=== PATIENT | female | born 1955 | race Caucasian/White ===

== ENCOUNTER 2018-04-27 13:29 | Inpatient (IN) | payer OTHER, SELFPAY ==
[2018-04-27] VITALS (19 sets, daily range): BP systolic 132–161; BP diastolic 54–93; PULSE 62–92; RESP 10–20; TEMP 36.2–36.8; O2SAT 92–100; BMI 36.9
--- NOTE | 2018-04-27 | PATH_ITS ---
[facility] Accession Number: [id number] . 01 Material submitted: . ANAL CANAL LESION . 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 Squamous cell carcinoma in situ also present. Lymphovascular invasion present. MRV/04/30/2018 . 01 Comment: Results were called to Dr. Evelyne Loyola on 04/30/2018 at 11:20 am. . 01 Electronically signed: . Marvin Campos MD, Pathologist NPI- [id number] . 01 Gross description: . Received in formalin, labeled anal canal lesion, is a piece of teague-sosa rubbery tissue (2.8 x 1.8 x 1.1 cm). The apparent resection margin is inked black. Serially sectioned and entirely submitted in cassettes A1-A3. ([id number]) /[facility] . 01 Pathologist provided ICD-10: C21.1 . 01 CPT . 862433 Performed at: [address] [facility], [place], [place] [id number] MD Hipolito Sierra MD Phone: [phone]
--- NOTE | 2018-04-27 13:51 | P.HP_ITS ---
History of Present Illness Date Patient Seen: 04/27/18 Time Patient Seen: 11:44 Chief complaint: rectal bleeding Narrative: Red rectal bleeding Patient called the office today describing red rectal bleeding. A and running down her leg. She was seen in the office this morning. The patient has had red rectal bleeding for several days. But generally not extensive. Today was obviously more than her normal bleeding. 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 She has a small fistula remaining. When she has a fair amount of rectal bleeding she gets a little bit of bleeding through the fistula and upper vagina No fever no chills no melena. Minimal abdominal pain. She thinks someone told her in the past she had irritable bowel syndrome. She has no history of bleeding disorder. She had a colonoscopy within the last 2 years in [place] that was unremarkable except for some polyps She is on no blood thinners Daily medications include metformin and losartan Patient History Medical History Cataract (Chronic) Diabetes mellitus (Chronic 2002) Rosacea (Chronic) Chicken pox (Resolved) Endometriosis (Resolved) Fibroids (Resolved) Fractures (Resolved) Frequent UTI (Resolved) History of heavy periods (Resolved) Infertility (Resolved) Mumps (Resolved) Ovarian cyst (Resolved) Rubella (Resolved) Surgical History Anesthesia (Resolved) History of ankle surgery (Resolved 1994) History of hand surgery (Resolved 2014) History of rectal surgery (Resolved 1984) History of right knee surgery (Resolved 2004) Status post hysterectomy (Resolved 1996) Status post laparoscopy (Resolved 1981) Family & Social History Family History: Reviewed 04/27/18 by Mirza Vann MD Tobacco & Substance use: Smoking Status Former smoker Meds Home Medications Medication Instructions Recorded Confirmed Type sulfacetamide sodium [Ovace] 180 ml TP BID #0 07/04/16 04/27/18 History minocycline 25 mg PO BID #90 cap 09/04/16 04/27/18 Rx losartan 50 mg tablet 50 mg PO QDAY #90 tab 02/26/18 04/27/18 Rx metformin 1,000 mg tablet 1,000 mg PO BID #36 tab 04/17/18 04/27/18 Rx hydrocortisone 2.5 % topical cream 1 applictn [place] BID 14 Days #30 gram 04/22/18 04/27/18 Rx with perineal applicator Allergies Allergy/AdvReac Type Severity Reaction Status Date / Time Penicillins [PENICILLINS] Allergy Unknown Unverified 04/22/18 15:12 Sulfa (Sulfonamide Allergy Unknown Unverified 04/22/18 15:12 Antibiotics) [SULFA (SULFONAMIDE ANTIBIOTICS)] Review of Systems Review of Systems All systems reviewed & are unremarkable except as noted in HPI and below Exam Narrative Exam Narrative: GENERAL: SKIN: No specific lesions or rash. HEENT: Sclera nonicteric, and EOMI. TMs and canals normal. Nasal mucosa normal and septum midline. Oropharnyx without lesions. NECK: Midline trachea, thyroid nontender and not enlarged. No lymphadenopathy. Carotids without bruits. BACK: No obvious deformity and nontender BREASTS: Not examined.] CHEST: Clear and symmetric breath sounds. CV: RRR no audible murmur. ABDOMEN: Soft nontender without viceromegaly or bruits. EXTREMITIES: No cyanosis clubbing or edema. MUSCULOSKELETAL: No gross joint changes. NEURO: Cranial nerves grossly intact. Sensory motor normal. DTRs symmetric knees and ankles, 2+ bilaterally. Abdominal exam is benign. External anal exam shows no lesions no hemorrhoids. There was some blood on the perineum. Anoscopy is performed initially patient felt some discomfort as the scope was passed the sphincter. With the trocar was removed immediately red blood gushed out and continue to flow. Attempt to see father upstream with anoscope was unsuccessful but there was an impression that may well have been a mass there. Objective Labs Labs: No recent lab labs have been ordered and are pending Assessment & Plan (1) Rectal bleeding: Current visit: Yes Status: Acute Plan: Assessment/Plan Narrative: 1. The fairly rapid red rectal bleeding. Patient has no history of diverticulosis. Was said to have internal hemorrhoids but clearly this is bleeding more than expected. Unclear to me whether not to something more upstream needs colonoscopy. This was discussed with Dr. Loyola surgeon on-call who recommended she be admitted for observation and preparation for colonoscopy tomorrow 2. Hypertension on medication presumably stable 3. Diabetes on medication presumably stable labs been ordered
[2018-04-27 14:30] LABS: Add Manual Diff / Slide Review NO; Eosinophils Percent Auto 1.3 % (2-4); Hematocrit 33.6 % (36-46); Hemoglobin 11.5 g/dL (12.0-16.0); Lymphocytes Percent Auto 21.7 % (25-40); Mean Corpuscular HGB Conc 34.1 % (30-36); Mean Corpuscular Hemoglobin 31.4 PG (26-34); Mean Corpuscular Volume 91.9 fL (80-100); Neutrophils Absolute Auto 3000 /uL (3000-5900); Platelet Count 229 X10^3/uL (150-400); Red Blood Cell Count 3.65 X10^6/uL (4.0-5.2); Red Cell Distribution Width 13.1 % (11.6-14.8); White Blood Cell Count 4.5 X10^3/uL (4.5-11.0)
[2018-04-27] MEDS: DEXTROSE 5%-0.9% NS 1,000 ML 100 ML IV (14:36)
[2018-04-27 14:37] LABS: INR 1.1 (0.9-1.3); Prothrombin Time 11.6 SECONDS (10.1-12.7)
[2018-04-27 14:40] LABS: PTT Partial Thromboplastin Tim 27 SECONDS (26.4-36.2)
[2018-04-27 14:42] LABS: Alanine Aminotransferase 33 IU/L (9-52); Albumin Globulin Ratio 1.7 (1.0-2.8); Alkaline Phosphatase 62 U/L (38-126); Aspartate Aminotransferase 26 IU/L (14-36); BUN Creatinine Ratio 15.7 (6-22); Bilirubin Total 0.3 mg/dL (0.2-1.3); Blood Urea Nitrogen 11 mg/dL (7-17); Calcium 9.1 mg/dL (8.4-10.2); Carbon Dioxide 24 mmol/L (22-32); Chloride 104 mmol/L (98-107); Estimated Glomerular Filt Rate > 60.0 mL/min (>60); Globulin 2.4 g/dL (1.7-4.1); Glucose 109 mg/dL (80-110); HEMOLYSIS < 15 (0-50); Magnesium 1.5 mg/dL (1.6-2.3); Potassium 4.5 mmol/L (3.4-5.1); Sodium 141 mmol/L (137-145); Total Protein 6.4 g/dL (6.3-8.2)
--- NOTE | 2018-04-27 15:37 | PM.CN ---
History of Present Illness Date Patient Seen: 04/27/18 Time Patient Seen: 15:38 Chief complaint: rectal bleeding Reason for consult: Rectal/anal bleeding Requesting provider: Mirza Vann Narrative: Wonderful 62 year old lady to presented to her PCP office today report bright red blood per rectum. She reports she has been sort of dealing with this issue for the last several months. She reports she started working at a standing job at [employer] about a month ago. Had that is really when her problems started to ramp up. She says that she started feeling a sense of constant or near constant anal pressure within about 2 hr of getting to work. She says that over the last week or so she has been seeing gradually a little more blood. She and Dr. Davenport discussed this issue a couple of months ago and decided it was probably a hemorrhoid. She said she has had itching and irritation in the perianal area for a long time as well. 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 She denies any unexplained weight loss. She denies any bright red blood per rectum. She reports that her last colonoscopy was at [facility] and she does recall polyps but nothing particularly large or concerning. She denies any hot flashes, recent sick contacts or any other concerning constitutional symptoms [facility] Medical History Cataract (Chronic) Diabetes mellitus (Chronic 2002) Rosacea (Chronic) Chicken pox (Resolved) Endometriosis (Resolved) Fibroids (Resolved) Fractures (Resolved) Frequent UTI (Resolved) History of heavy periods (Resolved) Infertility (Resolved) Mumps (Resolved) Ovarian cyst (Resolved) Rubella (Resolved) Surgical History Anesthesia (Resolved) History of ankle surgery (Resolved 1994) History of hand surgery (Resolved 2014) History of rectal surgery (Resolved 1984) History of right knee surgery (Resolved 2004) Status post hysterectomy (Resolved 1996) Status post laparoscopy (Resolved 1981) Family History Brother Age: 61 Polyp of colon, unspecified part of colon, unspecified type Grandfather Age: 61 Cancer Mother Malignant neoplasm of female breast, unspecified laterality, unspecified site of breast Aneurysm Brother No problems noted. Father Brain cancer Grandmother Stroke Grandfather Diabetes mellitus Grandmother Leukemia Family/Other Malignant neoplasm of female breast, unspecified laterality, unspecified site of breast Social History household members: none Smoking Status: Former smoker Meds Home Medications Medication Instructions Recorded Confirmed Type sulfacetamide sodium [Ovace] 180 ml TP BID #0 07/04/16 04/27/18 History minocycline 25 mg PO BID #90 cap 09/04/16 04/27/18 Rx losartan 50 mg tablet 50 mg PO QDAY #90 tab 02/26/18 04/27/18 Rx metformin 1,000 mg tablet 1,000 mg PO BID #36 tab 04/17/18 04/27/18 Rx hydrocortisone 2.5 % topical cream 1 applictn [place] BID 14 Days #30 gram 04/22/18 04/27/18 Rx with perineal applicator Allergies Allergy/AdvReac Type Severity Reaction Status Date / Time Penicillins [PENICILLINS] Allergy Severe Rash Verified 04/27/18 13:57 Sulfa (Sulfonamide Allergy Severe Rash Verified 04/27/18 13:56 Antibiotics) [SULFA (SULFONAMIDE ANTIBIOTICS)] Review of Systems Review of Systems Dariela specifically denies any abdominal pain, nausea, or vomiting. She has not noted any change in her bowel habits. She denies any dark or tarry stools. The blood that she sees is purely bright red and clotted. The remainder of the review of systems is completely negative Exam Vital Signs (past 8 hours): - 04/27/18 13:54 Temperature 98.2 F Pulse Rate 83 Respiratory Rate 16 Blood Pressure 161/93 H Pulse Oximetry 98 Narrative Exam Narrative: Pleasant middle-aged lady in no obvious distress HEENT: Normocephalic and atraumatic, pupils equal round reactive to light accommodation with anicteric sclera. Lungs: Clear to auscultation bilaterally Heart: Regular rate and rhythm without murmur rub or gallop Abdomen: Soft, nontender to palpation, active bowel sounds. No rebound or guarding. No heel tap a Rovsing sign. No abdominal masses. Rectal: Internal rectal examination is deferred. There is a circular blood stain on the Chux pad but no active bleeding from the anus currently. Extremities: Warm and well perfused without obvious edema. Objective Labs Result Diagrams: 04/27/18 14:08 04/27/18 14:08 Labs: Laboratory Results - last 24 hr 04/27/18 04/27/18 04/27/18 14:08 14:08 14:08 WBC 4.5 RBC 3.65 L Hgb 11.5 L Hct 33.6 L MCV 91.9 MCH 31.4 MCHC 34.1 RDW 13.1 Plt Count 229 Neut % (Auto) 68.0 Lymph % (Auto) 21.7 L [place] % (Auto) 8.0 Eos % (Auto) 1.3 L Baso % (Auto) 1.0 Neut # (Auto) 3000 PT 11.6 INR 1.1 APTT 27 Sodium 141 Potassium 4.5 Chloride 104 Carbon Dioxide 24 BUN 11 Creatinine 0.70 Estimated GFR > 60.0 BUN/Creatinine Ratio 15.7 Glucose 109 Calcium 9.1 Magnesium 1.5 L Total Bilirubin 0.3 AST 26 ALT 33 Alkaline Phosphatase 62 Total Protein 6.4 Albumin 4.0 Globulin 2.4 Albumin/Globulin Ratio 1.7 Assessment & Plan Plan: Assessment/Plan Narrative: Bright red anal bleeding in the setting of a pleasant 62-year-old lady whose had a recent colonoscopy. This could be simply a hemorrhoid or thrombosed hemorrhoid or laceration or any other of numerous possible benign anal lesions. It could also represent a malignancy but I think this is much less likely. I have recommended an examination under anesthesia in the operating room tonight. Hopefully we will be able to stop the hemorrhage and control any further symptoms down the road. Additionally, I will request reports of the most recent colonoscopy from [facility]. I have discussed the risks and benefits of the procedure with . Wilmer andjoe has expressed desire to complete it today.
--- NOTE | 2018-04-27 15:42 | P.CONS_ITS ---
History of Present Illness Date Patient Seen: 04/27/18 Time Patient Seen: 15:38 Chief complaint: rectal bleeding Reason for consult: Rectal/anal bleeding Requesting provider: Mirza Vann Narrative: Wonderful 62 year old lady to presented to her PCP office today report bright red blood per rectum. She reports she has been sort of dealing with this issue for the last several months. She reports she started working at a standing job at [employer] about a month ago. Had that is really when her problems started to ramp up. She says that she started feeling a sense of constant or near constant anal pressure within about 2 hr of getting to work. She says that over the last week or so she has been seeing gradually a little more blood. She and Dr. Davenport discussed this issue a couple of months ago and decided it was probably a hemorrhoid. She said she has had itching and irritation in the perianal area for a long time as well. 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 She denies any unexplained weight loss. She denies any bright red blood per rectum. She reports that her last colonoscopy was at [facility] and she does recall polyps but nothing particularly large or concerning. She denies any hot flashes, recent sick contacts or any other concerning constitutional symptoms [facility] Medical History Cataract (Chronic) Diabetes mellitus (Chronic 2002) Rosacea (Chronic) Chicken pox (Resolved) Endometriosis (Resolved) Fibroids (Resolved) Fractures (Resolved) Frequent UTI (Resolved) History of heavy periods (Resolved) Infertility (Resolved) Mumps (Resolved) Ovarian cyst (Resolved) Rubella (Resolved) Surgical History Anesthesia (Resolved) History of ankle surgery (Resolved 1994) History of hand surgery (Resolved 2014) History of rectal surgery (Resolved 1984) History of right knee surgery (Resolved 2004) Status post hysterectomy (Resolved 1996) Status post laparoscopy (Resolved 1981) Family History Brother Age: 61 Polyp of colon, unspecified part of colon, unspecified type Grandfather Age: 61 Cancer Mother Malignant neoplasm of female breast, unspecified laterality, unspecified site of breast Aneurysm Brother No problems noted. Father Brain cancer Grandmother Stroke Grandfather Diabetes mellitus Grandmother Leukemia Family/Other Malignant neoplasm of female breast, unspecified laterality, unspecified site of breast Social History household members: none Smoking Status: Former smoker Meds Home Medications Medication Instructions Recorded Confirmed Type sulfacetamide sodium [Ovace] 180 ml TP BID #0 07/04/16 04/27/18 History minocycline 25 mg PO BID #90 cap 09/04/16 04/27/18 Rx losartan 50 mg tablet 50 mg PO QDAY #90 tab 02/26/18 04/27/18 Rx metformin 1,000 mg tablet 1,000 mg PO BID #36 tab 04/17/18 04/27/18 Rx hydrocortisone 2.5 % topical cream [address] BID 14 Days #30 gram 04/22/18 04/27/18 Rx with perineal applicator Allergies Allergy/AdvReac Type Severity Reaction Status Date / Time Penicillins [PENICILLINS] Allergy Severe Rash Verified 04/27/18 13:57 Sulfa (Sulfonamide Allergy Severe Rash Verified 04/27/18 13:56 Antibiotics) [SULFA (SULFONAMIDE ANTIBIOTICS)] Review of Systems Review of Systems Dariela specifically denies any abdominal pain, nausea, or vomiting. She has not noted any change in her bowel habits. She denies any dark or tarry stools. The blood that she sees is purely bright red and clotted. The remainder of the review of systems is completely negative Exam Vital Signs (past 8 hours): - 04/27/18 13:54 Temperature 98.2 F Pulse Rate 83 Respiratory Rate 16 Blood Pressure 161/93 H Pulse Oximetry 98 Narrative Exam Narrative: Pleasant middle-aged lady in no obvious distress HEENT: Normocephalic and atraumatic, pupils equal round reactive to light accommodation with anicteric sclera. Lungs: Clear to auscultation bilaterally Heart: Regular rate and rhythm without murmur rub or gallop Abdomen: Soft, nontender to palpation, active bowel sounds. No rebound or guarding. No heel tap a Rovsing sign. No abdominal masses. Rectal: Internal rectal examination is deferred. There is a circular blood stain on the Chux pad but no active bleeding from the anus currently. Extremities: Warm and well perfused without obvious edema. Objective Labs Result Diagrams: 04/27/18 14:08 04/27/18 14:08 Labs: Laboratory Results - last 24 hr 04/27/18 04/27/18 04/27/18 14:08 14:08 14:08 WBC 4.5 RBC 3.65 L Hgb 11.5 L Hct 33.6 L MCV 91.9 MCH 31.4 MCHC 34.1 RDW 13.1 Plt Count 229 Neut % (Auto) 68.0 Lymph % (Auto) 21.7 L [place] % (Auto) 8.0 Eos % (Auto) 1.3 L Baso % (Auto) 1.0 Neut # (Auto) 3000 PT 11.6 INR 1.1 APTT 27 Sodium 141 Potassium 4.5 Chloride 104 Carbon Dioxide 24 BUN 11 Creatinine 0.70 Estimated GFR > 60.0 BUN/Creatinine Ratio 15.7 Glucose 109 Calcium 9.1 Magnesium 1.5 L Total Bilirubin 0.3 AST 26 ALT 33 Alkaline Phosphatase 62 Total Protein 6.4 Albumin 4.0 Globulin 2.4 Albumin/Globulin Ratio 1.7 Assessment & Plan Plan: Assessment/Plan Narrative: Bright red anal bleeding in the setting of a pleasant 62-year-old lady whose had a recent colonoscopy. This could be simply a hemorrhoid or thrombosed hemorrhoid or laceration or any other of numerous possible benign anal lesions. It could also represent a malignancy but I think this is much less likely. I have recommended an examination under anesthesia in the operating room tonight. Hopefully we will be able to stop the hemorrhage and control any further symptoms down the road. Additionally, I will request reports of the most recent colonoscopy from [facility]. I have discussed the risks and benefits of the procedure with . iWlmer andjoe has expressed desire to complete it today.
--- NOTE | 2018-04-27 15:54 | PC.NURSE ---
Admit: Late entry Arrived to room 204 as direct admit @1320. A&O X3, steady on feet. Informed of NPO status, oral swabs provided. IVF per order, site in L AC WNL. Off floor for endoscopy at approx 1500.
[2018-04-27] MEDS: LACTATED RINGERS 1,000 ML 42 ML IV (16:08)
[2018-04-27] MEDS: CEFAZOLIN 2 GM/100 ML FROZ.PIGGY IV (16:28)
--- NOTE | 2018-04-27 16:39 | SUR.OPER ---
Lithotomy on padded OR bed, head on pillow, arms secured on padded arm boards at <90 degrees abduction. Legs secured in padded yellow fins stirrups.
--- NOTE | 2018-04-27 17:09 | P.OP_ITS ---
Operative Date/Time/Diagnoses Date of procedure: 04/27/18 Time of procedure: 17:02 Pre-op diagnosis: Anal hemorrhage Post-op diagnosis: same Procedure & Clinicians Procedure: Examination under anesthesia with biopsy of anal lesion Same procedure as scheduled: Yes Indications: Bright red anal hemorrhage Surgeon: Evelyne Loyola Anesthesia Type: General ([facility]) Operative Notes Findings: 1. Very large anal rectal mass-approximately 10 x 5 cm. Multilobulated and very friable. 2. Active hemorrhage from the open surface of the lesion. 3. The lesion extends into the anal canal and onto the anoderm. 4. One 2 cm segment of the mass was noted to be avulsed and was retained for pathology Closure Type: not applicable Specimen(s): other (Portion of anal mass) Estimated Blood Loss (mL): 10 Procedure in detail: After obtaining informed consent, the patient brought to the operating room and placed in the supine position on the operating table. Following successful induction of general endotracheal anesthesia, appropriate padding of all bony prominences, and placement of appropriate monitors, the perianal regions prepped and draped in standard surgical fashion. A time-out was held per SCOAP protocol. A self-retaining anal retractor was lubricated and placed into the anal canal. We immediately encountered a volume of clotted blood and a mass extending from the anal derm into the anal canal and for a distance of approximately 10 cm superiorly. A portion of the mass was noted to be floating by a 4 or 5 mm diameter stalk of tissue. This piece was retained for pathology. The mass was palpably fixed posteriorly and occupied approximately 25-30% of the circumference of the anal canal. Once the biopsy had been obtained, multiple efforts were undertaken to try to stop the bleeding including direct pressure and packing with Gel-Foam and Surgicel. We finally achieved a degree of hemostasis using 2 pieces of Surgicel covering the raw surface of the lesion and 2 portions of Gel-Foam wrapped to provide a type of pressure dressing. All sponge, needle, and instrument counts were correct at the conclusion the case. At the time the surgery was concluded, there was no active hemorrhage from the anal canal. The patient was allowed awaken from anesthesia and taken to the postanesthesia care unit in good condition. Complications: none Condition: stable Disposition: PACU Plan for aftercare: 1. I have spoken to Dr. Vann regarding all of these findings 2. I have discussed all the above with the patient 3. Return to [facility] for supportive care and further disposition.
[2018-04-27] MEDS: fentaNYL 100 MCG/2 ML INJ 50 MCG IV ×2 (17:16→17:26)
[2018-04-27] MEDS: HYDROMORPHONE 2 MG INJ 0.5 MG IV ×2 (17:41→17:48)
[2018-04-27 19:27] LABS: Hematocrit 31.6 % (36-46); Hemoglobin 10.8 g/dL (12.0-16.0)
[2018-04-27] MEDS: HYDROMORPHONE 0.5 MG INJ IV (20:34)
--- NOTE | 2018-04-27 22:02 | PC.NURSE ---
Addendum entered by Yamilet Pablo R.N. 04/28/18 00:49: received call from coordinator that pt needed to transfer to [facility] due to anal mass with bleeding. Pt made NPO, IVF started. Coordinator received order for pain meds. Medicated once with IV Dilaudid. No blood leaking from anal packing. Pt transferred to [facility] at 22:00. Report called to unit 11E. Original Note: hector note Saw Dr. Loyola at 15:10, pt not to receive Go-Lytely Pt to go to endoscopy at 17:00. Pt up to bathroom to void, no blood seen. Pt went to endoscopy early. Received call from
== END 2018-04-27 22:00 | disposition short-term general hospital (02) | DRG 348 ==
PROVIDERS: Surgery; Admitting Provider Family Medicine; Family Provider Family Medicine; PCP Family Medicine; Visit Provider Family Medicine
PROC: 0W3P7ZZ Control Bleeding in Gastrointestinal Tract, Via Natural or Artificial Opening (ICD-10-PCS; CPT 45990; principal; 2018-04-27 17:00)
DX: C21.8 Malignant neoplasm of overlapping sites of rectum, anus and anal canal (principal); K62.5 Hemorrhage of anus and rectum; I10 Essential (primary) hypertension; E11.9 Type 2 diabetes mellitus without complications; Z79.84 Long term (current) use of oral hypoglycemic drugs; E66.9 Obesity, unspecified; Z68.36 Body mass index [BMI] 36.0-36.9, adult
CPT/HCPCS: 36592; 46922; 80053; 82962; 83735; 85014; 85018; 85025; 85610; 85730; 99221; J0690; J1170; J2405; J2704; J3010

== ENCOUNTER → 2018-07-27 08:55 | Outpatient (CLI) | payer OTHER, SELFPAY ==
[2018-04-27 13:34] VITALS: BMI 36.9
[2018-07-27 10:14] LABS: Hemoglobin A1C% w Est Avg Glu 5.3 % (4.0-6.0)
[2018-07-27 10:31] LABS: Cholesterol 188 mg/dL (140-199); HDL Cholesterol 45 mg/dL (40-60); LDL Cholesterol Calculated 120 mg/dL (<100); Triglycerides 117 mg/dL (35-150)
== END ==
PROVIDERS: PCP Family Medicine; Visit Provider Family Medicine
DX: E11.9 Type 2 diabetes mellitus without complications (principal)
CPT/HCPCS: 36415; 80061; 83036

== ENCOUNTER → 2018-11-10 12:13 | Outpatient (CLI) | payer OTHER, SELFPAY ==
[2018-04-27 13:34] VITALS: BMI 36.9
[2018-11-10 13:21] LABS: Add Manual Diff / Slide Review NO; Basophils Absolute Auto 0 /uL (0-100); Basophils Percent Auto 0.8 % (0-2); Eosinophils Absolute Auto 100 /uL (0-450); Eosinophils Percent Auto 1.9 % (2-4); Hematocrit 33.8 % (36-46); Hemoglobin 11.7 g/dL (12.0-16.0); Lymphocytes Absolute Auto 600 /uL (1100-4500); Lymphocytes Percent Auto 16.1 % (25-40); Mean Corpuscular HGB Conc 34.7 % (30-36); Mean Corpuscular Hemoglobin 30.9 PG (26-34); Mean Corpuscular Volume 88.9 fL (80-100); Monocytes Absolute Auto 300 /uL (0-900); Monocytes Percent Auto 6.9 % (3-14); Neutrophils Absolute Auto 2900 /uL (1500-7000); Neutrophils Percent Auto 74.3 % (50-75); Platelet Count 198 X10^3/uL (150-400); Red Cell Distribution Width 13.9 % (11.6-14.8); White Blood Cell Count 3.9 X10^3/uL (4.5-11.0)
[2018-11-10 14:02] LABS: Alanine Aminotransferase 16 IU/L (9-52); Albumin 4.3 g/dL (3.5-5.0); Albumin Globulin Ratio 1.5 (1.0-2.8); Alkaline Phosphatase 71 U/L (38-126); Aspartate Aminotransferase 19 IU/L (14-36); Bilirubin Total 0.5 mg/dL (0.2-1.3); Blood Urea Nitrogen 14 mg/dL (7-17); Calcium 9.9 mg/dL (8.4-10.2); Carbon Dioxide 27 mmol/L (22-32); Chloride 98 mmol/L (98-107); Cholesterol 181 mg/dL (140-199); Estimated Glomerular Filt Rate > 60.0 mL/min (>60); Globulin 2.8 g/dL (1.7-4.1); Glucose 107 mg/dL (80-110); HDL Cholesterol 67 mg/dL (40-60); HEMOLYSIS < 15 (0-50); LDL Cholesterol Calculated 93 mg/dL (<100); Potassium 4.3 mmol/L (3.4-5.1); Sodium 136 mmol/L (137-145); Total Protein 7.1 g/dL (6.3-8.2); Triglycerides 104 mg/dL (35-150)
[2018-11-10 15:08] LABS: TSH w/ Reflex to FT4 0.06 uIU/mL (0.47-4.68)
[2018-11-10 15:36] LABS: Free T3, Triiodothyronine Free 3.71 pg/mL (2.77-5.27); Free T4, Direct Thyroxine 1.15 ng/dL (0.78-2.19)
== END ==
PROVIDERS: Family Provider Family Medicine; PCP Family Medicine; Visit Provider Family Medicine
DX: E11.9 Type 2 diabetes mellitus without complications (principal); I10 Essential (primary) hypertension; E04.1 Nontoxic single thyroid nodule
CPT/HCPCS: 36415; 80053; 80061; 83036; 84439; 84443; 84481; 85025

== ENCOUNTER → 2019-01-13 14:55 | Outpatient (CLI) | payer OTHER, SELFPAY ==
[2018-04-27 13:34] VITALS: BMI 36.9
[2019-01-13 15:53] LABS: Free T3, Triiodothyronine Free 3.47 pg/mL (2.77-5.27); Free T4, Direct Thyroxine 1.09 ng/dL (0.78-2.19)
[2019-01-13 16:07] LABS: Thyroid Stimulating Hormone 0.04 uIU/mL (0.47-4.68)
== END ==
PROVIDERS: Family Provider Family Medicine; PCP Family Medicine; Visit Provider Family Medicine
DX: E04.1 Nontoxic single thyroid nodule (principal)
CPT/HCPCS: 36415; 84439; 84443; 84481